=== PATIENT | female | born 1955 ===

== ENCOUNTER 2017-01-03 06:31 | Day surgery (SDC) | payer OTHER ==
[2017-01-03 07:13] VITALS: BMI 26.5
[2017-01-03] MEDS ORDERED: Midazolam 2 MG/2 ML VIAL ONE (09:37)
[2017-01-03] MEDS ORDERED: Propofol 10 mg/ml Inj (20 ML) ONE ×3 (09:37→09:48)
[2017-01-03] MEDS ORDERED: Lactated Ringer's 500 ML IV ONE (09:52)
[2017-01-03] MEDS ORDERED: Lactated Ringer's 1,000 ML IV SCH (10:45)
[2017-01-03 11:06] VITALS: TEMP 98
[2017-01-03 11:12] VITALS: RESP 18
[2017-01-03 11:24] VITALS: O2SAT 98
[2017-01-03 14:02] VITALS: BP 115/68; PULSE 82
== END 2017-01-03 12:45 | disposition home or self-care (01) ==
LOC: C.ENDO 06:31
PROVIDERS: ATTEND Internal Medicine Gastroenterology
DX: K21.9 Gastro-esophageal reflux disease without esophagitis (principal); K20.9 Esophagitis, unspecified; K44.9 Diaphragmatic hernia without obstruction or gangrene; K29.70 Gastritis, unspecified, without bleeding; D12.2 Benign neoplasm of ascending colon; D12.5 Benign neoplasm of sigmoid colon; K62.0 Anal polyp; K64.8 Other hemorrhoids
CPT/HCPCS: 43239; 45380; 88305; 88312; 88342; J2001; J2250; J2704; J7120

== ENCOUNTER 2017-05-29 15:53 | Observation (INO) | payer OTHER ==
[2017-05-29 16:02] VITALS: BMI 28.3
[2017-05-29] MEDS ORDERED: Sodium Chloride 0.9% 1,000 ML IV STA ×2 (16:41→19:02)
[2017-05-29] MEDS ORDERED: Sodium Chloride 0.9% 1,000 ML ONE ×2 (16:55→21:34)
[2017-05-29 17:04] LABS: BASO # 0.1 K/uL (0.0-0.2); BASO % 0.8 % (0.0-2.0); EOS # 0.2 K/uL (0.0-0.7); HEMATOCRIT 40.5 % (34.0-47.0); LYMPH # 2.2 K/uL (1.0-4.3); LYMPH % 28.2 % (20.0-40.0); MEAN CELL VOLUME 90.1 fL (81.0-99.0); MEAN CORPUSCULAR HEMOGLOBIN 30.3 pg (27.0-31.0); MEAN CORPUSCULAR HGB CONC 33.6 g/dL (33.0-37.0); MEAN PLATELET VOLUME 6.8 fL (7.2-11.7); MONO # 0.8 K/uL (0.0-0.8); MONO % 9.8 % (0.0-10.0); NRBC % 0.1 % (0.0-2.0); RED CELL DISTRIBUTION WIDTH 14.6 % (11.5-14.5); WHITE BLOOD COUNT 7.7 K/uL (4.8-10.8)
[2017-05-29 17:12] LABS: CHLORIDE 105 mmol/L (98-107); POTASSIUM 3.7 mmol/L (3.6-5.2); SODIUM 138 mmol/L (132-148)
[2017-05-29 17:14] LABS: BILIRUBIN,TOTAL 0.4 mg/dL (0.2-1.3); GFR AFRICAN-AMERICAN > 60
[2017-05-29 17:15] LABS: ALB/GLOB RATIO 1.3 (1.0-2.1); ALKALINE PHOSPHATASE 74 U/L (38-126); ALT/SGPT 43 U/L (9-52); AST/SGOT 28 U/L (14-36); BLOOD UREA NITROGEN 22 mg/dL (7-17); CALCIUM 9.1 mg/dl (8.6-10.4); CARBON DIOXIDE 23 mmol/L (22-30); GLUCOSE,RANDOM 138 mg/dL (65-105); TOTAL PROTEIN 6.8 g/dL (6.3-8.3)
[2017-05-29 17:18] LABS: RBC URINE 3 /hpf (0-3); URINE BACTERIA RARE (<OCC); URINE BILIRUBIN NEGATIVE (NEGATIVE); URINE BLOOD NEGATIVE (NEGATIVE); URINE CALCIUM OXALATE CRYSTALS FEW /hpf (<OCC); URINE COLOR Yellow (YELLOW); URINE GLUCOSE (UA) NORMAL (Normal); URINE KETONE NEGATIVE (NEGATIVE); URINE LEUKOCYTE ESTERASE NEG Leu/uL (Negative); URINE PROTEIN NEGATIVE (NEGATIVE); URINE UROBILINOGEN NORMAL mg/dL (0.2-1.0); WBC URINE 1 /hpf (0-5)
--- NOTE | 2017-05-29 17:18 | C.PDOC ---
History Of Present Illness 61 y/o female, whose PMHx includes kidney stones, presents to ED for evaluation of left flank pain, and difficulty urinating since this morning. Pt states that she has urinary frequency but only drips when trying to urinate. States that her symptoms feel similar when she previously had kidney stone. Otherwise, denies any fever, chills, dysuria, hematuria, nausea, vomiting, or abdominal pain. Time Seen by Provider: 05/29/17 16:22 Chief Complaint (Nursing): Female Genitourinary History Per: Patient History/Exam Limitations: no limitations Onset/Duration Of Symptoms: Hrs Current Symptoms Are (Timing): Still Present Quality Of Discomfort: "Pain" Associated Symptoms: Back Pain, Urinary Symptoms. denies: Fever, Chills, Nausea , Vomiting, Diarrhea, Loss Of Appetite, Chest Pain, Constipation Alleviating Factors: None Recent travel outside of the [place]: No Additional History Per: Patient Abnormal Vaginal Bleeding: No Past Medical History Reviewed: Historical Data, Nursing Documentation, Vital Signs Vital Signs: Last Vital Signs Temp 98.5 F 05/29/17 16:01 Pulse 108 H 05/29/17 16:01 Resp 20 05/29/17 16:01 BP 127/82 05/29/17 16:01 Pulse Ox 96 05/29/17 17:36 - Medical History PMH: Arthritis, Asthma, COPD, Diabetes, Hypercholesterolemia, Kidney Stones Denies: HTN Surgical History: Endoscopy, Tonsillectomy - [facility] Procedures EXC LES SOFT TISSUE NEC (02/26/15) OTHER THERAPEUTIC APHERESIS (02/26/15) TENDON SHEATH EXPLORAT (02/26/15) URETERAL CATHETERIZATION (06/27/14) Family History: States: Unknown Family Hx - Social History Hx Tobacco Use: Yes Hx Alcohol Use: Yes Hx Substance Use: No - Immunization History Hx Tetanus Toxoid Vaccination: No Hx Influenza Vaccination: No Hx Pneumococcal Vaccination: No Review Of Systems Except As Marked, All Systems Reviewed And Found Negative. Constitutional: Negative for: Fever, Chills Cardiovascular: Negative for: Chest Pain, Palpitations Respiratory: Negative for: Shortness of Breath Gastrointestinal: Negative for: Nausea, Vomiting, Abdominal Pain, Diarrhea Genitourinary: Positive for: Frequency. Negative for: Dysuria, Hematuria, Vaginal Discharge Musculoskeletal: Positive for: Back Pain (left flank) Skin: Negative for: Rash, Bruising Neurological: Negative for: Weakness, Numbness Physical Exam - Physical Exam Appears: Non-toxic, Other (uncomfortable) Skin: Normal Color, Warm, Dry Head: Atraumatic, Normacephalic Eye(s): bilateral: Normal Inspection Oral Mucosa: Moist Neck: Normal ROM, Supple Cardiovascular: Rhythm Regular, No Murmur Respiratory: Normal Breath Sounds, No Rales, No Rhonchi, No Wheezing Gastrointestinal/Abdominal: Soft, No Tenderness Back: CVA Tenderness (left), No Vertebral Tenderness, No Paraspinal Tenderness Extremity: Normal ROM Neurological/Psych: Oriented x3, Normal Speech, Normal Cognition ED Course And Treatment - Laboratory Results Result Diagrams: 05/29/17 16:59 05/29/17 16:59 O2 Sat by Pulse Oximetry: 96 (RA) Pulse Ox Interpretation: Normal - CT Scan/US Abd & pelvis CT Other Rad Studies (CT/US): Read By Radiologist, Radiology Report Reviewed CT/US Interpretation: PROCEDURE: CT Abdomen and Pelvis without Oral or IV contrast. HISTORY: left flank pain. COMPARISON: CT of the abdomen pelvis without oral or IV contrast performed 01/31/17. TECHNIQUE: Contiguous axial images of the abdomen and pelvis. No oral or IV contrast administered. Coronal and Sagittal reformats generated. Radiation dose: Total exam DLP = 495.99 mGy- cm. This CT exam was performed using one or more of the following dose reduction techniques: Automated exposure control, adjustment of the mA and/or kV according to patient size, and/or use of iterative reconstruction technique. FINDINGS: There is limited evaluation of the solid organs without the administration of IV contrast. LOWER THORAX: No visible consolidation, pleural effusion, or pneumothorax. LIVER: Hepatomegaly. GALLBLADDER AND BILE DUCTS: Unremarkable unenhanced appearance. PANCREAS: Unremarkable unenhanced appearance. SPLEEN: Unremarkable unenhanced appearance. ADRENALS: Low- attenuation left adrenal gland nodule measures approximately 2.0 x 1.4 cm, likely adenoma. Unremarkable unenhanced appearance of the right adrenal gland. KIDNEYS AND URETERS: No hydronephrosis or obstructing renal calculus. BLADDER : The urinary bladder appears unremarkable. REPRODUCTIVE: Uterus is absent, presumably due to hysterectomy. APPENDIX: The appendix appears within normal limits of caliber. No secondary signs of acute appendicitis. BOWEL: The stomach is nondistended. Lack of oral contrast limits evaluation for bowel pathology. The bowel loops appear within normal limits of caliber without evidence of intestinal obstruction. Diverticulosis without CT evidence of acute diverticulitis. Mild to moderate constipation. PERITONEUM: No significant free fluid. No definite free air. LYMPH NODES: No bulky lymphadenopathy identified. VASCULATURE: Scattered atherosclerotic calcifications. No aortic aneurysm. BONES: Mild degenerative changes. OTHER FINDINGS: None. IMPRESSION: Hepatomegaly. Low-attenuation left adrenal gland nodule measures approximately 2.0 x 1.4 cm, likely adenoma. Diverticulosis without CT evidence of acute diverticulitis. Mild to moderate constipation. Progress Note: Abd & pelvis CT, blood work, urinalysis ordered and reviewed. Pt was given Toradol, and IV fluids. On reassessment, pt reports she still in pain. case was d/wpt's PMD who accepted patient to MD for observation. Disposition - Disposition Disposition: HOSPITALIZED Disposition Time: 19:07 Condition: FAIR Forms: [facility] (Khmer) - Clinical Impression Clinical Impression: Left flank pain - PA / CERTIFICATION ENGINEER / Resident Statement MD/DO has reviewed & agrees with the documentation as recorded. - Scribe Statement The provider has reviewed the documentation as recorded by the Ziibe Prashant Castaneda All medical record entries made by the Deric were at my direction and personally dictated by me. I have reviewed the chart and agree that the record accurately reflects my personal performance of the history, physical exam, medical decision making, and the department course for this patient. I have also personally directed, reviewed, and agree with the discharge instructions and disposition. Decision To Admit - Pt Status Changed To: Hospital Disposition Of: Observation - . Bed Request Type: Regular Admitting Physician: Angela Ahmadi Patient Diagnosis: Left flank pain
--- NOTE | 2017-05-29 17:33 | CT ---
PROCEDURE: CT Abdomen and Pelvis without Oral or IV contrast. HISTORY: left flank pain COMPARISON: CT of the abdomen pelvis without oral or IV contrast performed 01/31/17 TECHNIQUE: Contiguous axial images of the abdomen and pelvis. No oral or IV contrast administered. Coronal and Sagittal reformats generated. Radiation dose: Total exam DLP = 495.99 mGy-cm. This CT exam was performed using one or more of the following dose reduction techniques: Automated exposure control, adjustment of the mA and/or kV according to patient size, and/or use of iterative reconstruction technique. FINDINGS: There is limited evaluation of the solid organs without the administration of IV contrast. LOWER THORAX: No visible consolidation, pleural effusion, or pneumothorax. LIVER: Hepatomegaly. GALLBLADDER AND BILE DUCTS: Unremarkable unenhanced appearance. PANCREAS: Unremarkable unenhanced appearance. SPLEEN: Unremarkable unenhanced appearance. ADRENALS: Low-attenuation left adrenal gland nodule measures approximately 2.0 x 1.4 cm, likely adenoma. Unremarkable unenhanced appearance of the right adrenal gland. KIDNEYS AND URETERS: No hydronephrosis or obstructing renal calculus. BLADDER: The urinary bladder appears unremarkable. REPRODUCTIVE: Uterus is absent, presumably due to hysterectomy. APPENDIX: The appendix appears within normal limits of caliber. No secondary signs of acute appendicitis. BOWEL: The stomach is nondistended. Lack of oral contrast limits evaluation for bowel pathology. The bowel loops appear within normal limits of caliber without evidence of intestinal obstruction. Diverticulosis without CT evidence of acute diverticulitis. Mild to moderate constipation. PERITONEUM: No significant free fluid. No definite free air. LYMPH NODES: No bulky lymphadenopathy identified. VASCULATURE: Scattered atherosclerotic calcifications. No aortic aneurysm. BONES: Mild degenerative changes. OTHER FINDINGS: None. IMPRESSION: Hepatomegaly. Low-attenuation left adrenal gland nodule measures approximately 2.0 x 1.4 cm, likely adenoma. Diverticulosis without CT evidence of acute diverticulitis. Mild to moderate constipation.
[2017-05-29] MEDS ORDERED: Morphine 4 MG/ML VIAL IV STA (19:01)
--- NOTE | 2017-05-29 20:56 | CP.PCM.HP ---
History of Present Illness - History of Present Illness History of Present Illness: Chief complaint: Abdominal pain History present illness: 60-year-old female with a history of COPD, hypercholesterolemia, osteopenia, diabetes, hypertension, renal colic in the past came to the emergency room with the sudden onset of abdominal pain, started this morning. Patient started noticing pain over the left side of the pelvis, and also hip and also in the left flank region, started having this morning, slowly got worse. Patient was associated with the some increasing urination, increased frequency, and some discomfort. She did not have any fever chills. No blood in the urine noted. The pain was severe, received pain medication in the emergency room. Patient also received IV fluid, without any improvement patient does not want to go home at this time. She was also having increasing symptoms of nausea with pain. Past medical history: Hypertension, hypercholesterolemia, diabetes, osteopenia, COPD. Surgical history: Left shoulder, left knee surgery. Lumpectomy tonsillectomy hysterectomy and cyst removal. Colonoscopy was done recently, and the polyps removal Allergies: Percocet in Personal history: Patient is a smoker, almost a 68 cigarettes per day. She used to smoke heavily in the past. Denies any alcohol. Family history significant for dementia, Parkinson's Review of system: Currently having no headache, cough, wheezing, chest tightness noted, abdominal pain noted, some improvement with the pain medicine, urinary discomfort, no leg swelling Vital signs reviewed No neck vein distention noted Bilateral expiratory wheezing noted CVS regular heart sound, no murmur noted Abdomen soft, nontender. Extremities no pedal edema [employer] alert awake oriented 3, no functional neurological deficit Labs reviewed CT scan of the abdomen showing no evidence of any calculi. No hydronephrosis. Nonspecific chest x-ray Assessment and recommendation: 60-year-old female with history of hypertension and hypercholesteremia osteopenia, osteoporosis, osteoarthritis, COPD. Chronic smoking. Kidney stone disease Now admitted with left flank pain, associated nephrolithiasis. Patient is also having increasing wheezing, acute exacerbation of COPD likely. We'll start the patient on corticosteroids, broncho-dilators. IV fluid. Urology evaluation. Cardiology evaluation for possible cardiac monitoring. We'll follow the patient Present on Admission - Present on Admission Any Indicators Present on Admission: No History of DVT/PE: No History of Uncontrolled Diabetes: No Urinary Catheter: No Decubitus Ulcer Present: No Past Patient History - Past Medical History & Family History Past Medical History?: Yes - Past Social History Smoking Status: Heavy Smoker > 10 Cigarettes Daily - CARDIAC Hx Hypercholesterolemia: Yes Hx Hypertension: No - PULMONARY Hx Asthma: Yes Hx Chronic Obstructive Pulmonary Disease (COPD): Yes - NEUROLOGICAL Hx Neurological Disorder: No - HEENT Hx HEENT Problems: No - RENAL Hx Kidney Stones: Yes - HEMATOLOGICAL/ONCOLOGICAL Hx Blood Disorders: No - INTEGUMENTARY Hx Dermatological Problems: No - MUSCULOSKELETAL/RHEUMATOLOGICAL Hx Arthritis: Yes - GASTROINTESTINAL Hx Gastrointestinal Disorders: Yes Hx Gastroesophageal Reflux: Yes Other/Comment: ABDOMINAL PAIN - GENITOURINARY/GYNECOLOGICAL Hx Genitourinary Disorders: Yes Other/Comment: KIDNEY STONES - PSYCHIATRIC Hx Substance Use: No - SURGICAL HISTORY Hx Tonsillectomy: Yes - ANESTHESIA Hx Anesthesia: Yes Hx Anesthesia Reactions: Yes (NAUSEA AND VOMITING) Hx Malignant Hyperthermia: No Meds Allergies/Adverse Reactions: Allergies Allergy/AdvReac Type Severity Reaction Status Date / Time acetaminophen [From Percocet] Allergy Verified 05/29/17 16:00 oxycodone HCl [From Percocet] Allergy Verified 05/29/17 16:00 flu vaccine Allergy Uncoded 05/29/17 16:00 pnuemonia vaccine Allergy Uncoded 05/29/17 16:00 Results - Vital Signs Recent Vital Signs: Last Vital Signs Temp 97.5 F L 05/29/17 20:07 Pulse 90 05/29/17 20:07 Resp 18 05/29/17 20:07 BP 132/78 05/29/17 20:07 Pulse Ox 95 05/29/17 20:07 - Labs Result Diagrams: 05/29/17 16:59 05/29/17 16:59
[2017-05-29] MEDS: Sodium Chloride 0.9% 1,000 ML IV SCH (21:30)
[2017-05-29] MEDS ORDERED: MethylPREDNISolone 40 mg Vial ONE (21:34)
[2017-05-29] MEDS: MethylPREDNISolone 40 mg Vial IVP SCH (21:42)
[2017-05-30 02:15] VITALS: RESP 20
[2017-05-30] MEDS: Sodium Chloride 0.9% 1,000 ML IV SCH ×2 (06:54→17:54)
[2017-05-30] MEDS: Albuterol-Ipratrop 3 mg / 0.5 (3 ml) UD INH SCH ×3 (07:24→19:59)
[2017-05-30] MEDS ORDERED: Enoxaparin 40 mg Syringe SC SCH (10:00)
[2017-05-30] MEDS: MethylPREDNISolone 40 mg Vial IVP SCH (11:00)
--- NOTE | 2017-05-30 12:38 | CP.PCM.CON ---
History of Present Illness - History of Present Illness History of Present Illness: PLEASE SEE DICTATED REPORT JOB# [id number] THANK YOU YS Past Patient History - Past Medical History & Family History Past Medical History?: Yes - Past Social History Smoking Status: Heavy Smoker > 10 Cigarettes Daily - CARDIAC Hx Cardiac Disorders: Yes Hx Hypercholesterolemia: Yes Hx Hypertension: No - PULMONARY Hx Respiratory Disorders: Yes Hx Asthma: Yes Hx Chronic Obstructive Pulmonary Disease (COPD): Yes - NEUROLOGICAL Hx Neurological Disorder: No - HEENT Hx HEENT Problems: No - RENAL Hx Chronic Kidney Disease: Yes Hx Kidney Stones: Yes - ENDOCRINE/METABOLIC Hx Endocrine Disorders: Yes Hx Diabetes Mellitus Type 2: Yes - HEMATOLOGICAL/ONCOLOGICAL Hx Blood Disorders: No - INTEGUMENTARY Hx Dermatological Problems: No - MUSCULOSKELETAL/RHEUMATOLOGICAL Hx Musculoskeletal Disorders: Yes Hx Arthritis: Yes Hx Falls: Yes - GASTROINTESTINAL Hx Gastrointestinal Disorders: Yes Hx Gastroesophageal Reflux: Yes Other/Comment: ABDOMINAL PAIN - GENITOURINARY/GYNECOLOGICAL Hx Genitourinary Disorders: Yes Other/Comment: KIDNEY STONES - PSYCHIATRIC Hx Psychophysiologic Disorder: No Hx Substance Use: No - SURGICAL HISTORY Hx Surgeries: Yes Hx Hysterectomy: Yes Hx Tonsillectomy: Yes Other/Comment: bilateral cysts removed 15 yrs ago - ANESTHESIA Hx Anesthesia: Yes Hx Anesthesia Reactions: Yes (NAUSEA AND VOMITING) Hx Malignant Hyperthermia: No Has any member of the family had a problem w/ anesthesia?: No Meds Home Medications: Home Medication List Medication Instructions Recorded Confirmed Type Albuterol/Ipratropium [Duoneb 3 3 ml INH RQ6 #120 05/31/17 Rx mg/0.5 mg (3 ml) UD] Tiotropium [place] Inhaler 1 cap INH ONCE #30 inhaler 05/31/17 Rx [Spiriva Inhalation Handihaler Device] Allergies/Adverse Reactions: Allergies Allergy/AdvReac Type Severity Reaction Status Date / Time acetaminophen [From Percocet] Allergy Verified 05/29/17 16:00 oxycodone HCl [From Percocet] Allergy Verified 05/29/17 16:00 flu vaccine Allergy Uncoded 05/29/17 16:00 pnuemonia vaccine Allergy Uncoded 05/29/17 16:00 - Medications Medications: Current Medications Albuterol/Ipratropium (Duoneb 3 Mg/0.5 Mg (3 Ml) Ud) 3 ml INH RQ6 [facility] Last Admin: 08/16/17 07:24 Dose: 3 ml Enoxaparin Sodium (Lovenox) 40 mg SC DAILY [facility] Last Admin: 05/30/17 11:00 Dose: 40 mg Famotidine (Pepcid) 20 mg IVP DAILY [facility] Last Admin: 05/30/17 11:00 Dose: 20 mg Sodium Chloride (Sodium Chloride 0.9%) 1,000 mls @ 100 mls/hr IV .Q10H [facility] Last Admin: 05/30/17 06:54 Dose: Not Given Ibuprofen (Motrin Tab) 400 mg PO Q8 PRN PRN Reason: Pain, moderate (4-7) Methylprednisolone (Solu-Medrol) 40 mg IVP DAILY [facility] Last Admin: 05/30/17 11:00 Dose: 40 mg Montelukast Sodium (Singulair) 10 mg PO DAILY [facility] Last Admin: 05/30/17 11:00 Dose: 10 mg Rosuvastatin Calcium (Crestor) 5 mg PO HS [facility] Last Admin: 05/29/17 23:04 Dose: 5 mg Tiotropium [place] (Spiriva) 18 mcg INH RQ24 [facility] Results - Vital Signs Recent Vital Signs: Last Vital Signs Temp 98.0 F 05/30/17 09:19 Pulse 86 05/30/17 09:19 Resp 20 05/30/17 09:19 BP 132/82 05/30/17 09:19 Pulse Ox 98 05/30/17 09:19 - Labs Result Diagrams: 05/29/17 16:59 05/29/17 16:59 Labs: Laboratory Results - last 24 hr 05/29/17 05/30/17 21:56 06:01 POC Glucose (mg/dL) 174 H 199 H Assessment & Plan - Assessment and Plan (Free Text) Assessment: IMP: ABD PAIN BACK PAIN HX OF UROLITHIASIS - Date & Time Date: 05/30/17 Time: 11:45
[2017-05-30] MEDS: Tiotropium 18 mcg Cap For Inhalation INH SCH (13:15)
--- NOTE | 2017-05-30 17:23 | CP.PCM.CON ---
History of Present Illness - History of Present Illness History of Present Illness: CC: Dyspnea, cardiac evaluation 61 y/o female, whose PMHx includes kidney stones, presents to ED for evaluation of left flank pain, and difficulty urinating since this morning. Pt states that she has urinary frequency but only drips when trying to urinate. States that her symptoms feel similar when she previously had kidney stone. Otherwise, denies any fever, chills, dysuria, hematuria, nausea, vomiting, or abdominal pain. Past Medical History Reviewed: Historical Data, Nursing Documentation, Vital Signs - Medical History PMH: Arthritis, Asthma, COPD, Diabetes, Hypercholesterolemia, Kidney Stones Denies: HTN Surgical History: Endoscopy, Tonsillectomy - [facility] Procedures EXC LES SOFT TISSUE NEC (02/26/15) OTHER THERAPEUTIC APHERESIS (02/26/15) TENDON SHEATH EXPLORAT (02/26/15) URETERAL CATHETERIZATION (06/27/14) Family History: States: Unknown Family Hx - Social History Hx Tobacco Use: Yes Hx Alcohol Use: Yes Hx Substance Use: No - Immunization History Hx Tetanus Toxoid Vaccination: No Hx Influenza Vaccination: No Hx Pneumococcal Vaccination: No Review Of Systems Except As Marked, All Systems Reviewed And Found Negative. Constitutional: Negative for: Fever, Chills Cardiovascular: Negative for: Chest Pain, Palpitations Respiratory: Negative for: Shortness of Breath Gastrointestinal: Negative for: Nausea, Vomiting, Abdominal Pain, Diarrhea Genitourinary: Positive for: Frequency. Negative for: Dysuria, Hematuria, Vaginal Discharge Musculoskeletal: Positive for: Back Pain (left flank) Skin: Negative for: Rash, Bruising Neurological: Negative for: Weakness, Numbness Physical Exam - Physical Exam Appears: Non-toxic, Other (uncomfortable) Skin: Normal Color, Warm, Dry Head: Atraumatic, Normacephalic Eye(s): bilateral: Normal Inspection Oral Mucosa: Moist Neck: Normal ROM, Supple Cardiovascular: Rhythm Regular, No Murmur Respiratory: Normal Breath Sounds, No Rales, No Rhonchi, No Wheezing Gastrointestinal/Abdominal: Soft, No Tenderness Back: CVA Tenderness (left), No Vertebral Tenderness, No Paraspinal Tenderness Extremity: Normal ROM Neurological/Psych: Oriented x3, Normal Speech, Normal Cognition Past Patient History - Past Medical History & Family History Past Medical History?: Yes - Past Social History Smoking Status: Heavy Smoker > 10 Cigarettes Daily - CARDIAC Hx Cardiac Disorders: Yes Hx Hypercholesterolemia: Yes Hx Hypertension: No - PULMONARY Hx Respiratory Disorders: Yes Hx Asthma: Yes Hx Chronic Obstructive Pulmonary Disease (COPD): Yes - NEUROLOGICAL Hx Neurological Disorder: No - HEENT Hx HEENT Problems: No - RENAL Hx Chronic Kidney Disease: Yes Hx Kidney Stones: Yes - ENDOCRINE/METABOLIC Hx Endocrine Disorders: Yes Hx Diabetes Mellitus Type 2: Yes - HEMATOLOGICAL/ONCOLOGICAL Hx Blood Disorders: No - INTEGUMENTARY Hx Dermatological Problems: No - MUSCULOSKELETAL/RHEUMATOLOGICAL Hx Musculoskeletal Disorders: Yes Hx Arthritis: Yes Hx Falls: Yes - GASTROINTESTINAL Hx Gastrointestinal Disorders: Yes Hx Gastroesophageal Reflux: Yes Other/Comment: ABDOMINAL PAIN - GENITOURINARY/GYNECOLOGICAL Hx Genitourinary Disorders: Yes Other/Comment: KIDNEY STONES - PSYCHIATRIC Hx Psychophysiologic Disorder: No Hx Substance Use: No - SURGICAL HISTORY Hx Surgeries: Yes Hx Hysterectomy: Yes Hx Tonsillectomy: Yes Other/Comment: bilateral cysts removed 15 yrs ago - ANESTHESIA Hx Anesthesia: Yes Hx Anesthesia Reactions: Yes (NAUSEA AND VOMITING) Hx Malignant Hyperthermia: No Has any member of the family had a problem w/ anesthesia?: No Meds Allergies/Adverse Reactions: Allergies Allergy/AdvReac Type Severity Reaction Status Date / Time acetaminophen [From Percocet] Allergy Verified 05/29/17 16:00 oxycodone HCl [From Percocet] Allergy Verified 05/29/17 16:00 flu vaccine Allergy Uncoded 05/29/17 16:00 pnuemonia vaccine Allergy Uncoded 05/29/17 16:00 - Medications Medications: Current Medications Albuterol/Ipratropium (Duoneb 3 Mg/0.5 Mg (3 Ml) Ud) 3 ml INH RQ6 [facility] Last Admin: 05/30/17 13:15 Dose: 3 ml Enoxaparin Sodium (Lovenox) 40 mg SC DAILY [facility] Last Admin: 05/30/17 11:00 Dose: 40 mg Famotidine (Pepcid) 20 mg IVP DAILY [facility] Last Admin: 05/30/17 11:00 Dose: 20 mg Sodium Chloride (Sodium Chloride 0.9%) 1,000 mls @ 100 mls/hr IV .Q10H [facility] Last Admin: 05/30/17 06:54 Dose: Not Given Ibuprofen (Motrin Tab) 400 mg PO Q8 PRN PRN Reason: Pain, moderate (4-7) Last Admin: 05/30/17 12:50 Dose: 400 mg Methylprednisolone (Solu-Medrol) 40 mg IVP DAILY [facility] Last Admin: 05/30/17 11:00 Dose: 40 mg Montelukast Sodium (Singulair) 10 mg PO DAILY [facility] Last Admin: 05/30/17 11:00 Dose: 10 mg Rosuvastatin Calcium (Crestor) 5 mg PO HS [facility] Last Admin: 05/29/17 23:04 Dose: 5 mg Tiotropium [place] (Spiriva) 18 mcg INH RQ24 [facility] Last Admin: 05/30/17 13:15 Dose: 18 mcg Results - Vital Signs Recent Vital Signs: Last Vital Signs Temp 97.9 F 05/30/17 16:17 Pulse 86 05/30/17 16:17 Resp 20 05/30/17 16:17 BP 127/75 05/30/17 16:17 Pulse Ox 95 05/30/17 16:17 - Labs Result Diagrams: 05/29/17 16:59 05/29/17 16:59 Labs: Laboratory Results - last 24 hr 05/29/17 05/30/17 21:56 06:01 POC Glucose (mg/dL) 174 H 199 H Assessment & Plan - Assessment and Plan (Free Text) Assessment: 61 F with Hx of HTN, Hyperlipidemia, tobacco use admitted predominantly for back pain Hx of kidney stones Patient electively scgeduled for stress test Sunday No additional cardiac testing needed at this time
[2017-05-31] MEDS: Albuterol-Ipratrop 3 mg / 0.5 (3 ml) UD INH SCH ×2 (01:39→07:26)
[2017-05-31] MEDS: Sodium Chloride 0.9% 1,000 ML IV SCH (03:16)
--- NOTE | 2017-05-31 06:52 | CP.PCM.PN ---
Subjective - Date & Time of Evaluation Date of Evaluation: 05/30/17 Time of Evaluation: 20:50 - Subjective Subjective: is a less pain over the left flank region, urinary symptoms are negative. No chest pain. She is able to eat without any problem, no nausea vomiting Vital signs reviewed No neck vein distention noted Chest good air entry bilaterally, no wheezing or rales noted CVS regular heart sound, no murmur noted Abdomen soft, nontender. 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 Currently having no active symptoms. At this time patient is currently stable. Continue the IV fluid. Possible discharge planning the morning Assessment/recommendation: 60-year-old female admitted with the history of COPD, mild exacerbation noted. Also elevated blood sugar likely secondary intravenous corticosteroids. We'll closely monitor. Discharge in the morning possibly Objective - Vital Signs/Intake and Output Vital Signs (last 24 hours): Temp Pulse Resp BP Pulse Ox 98.0 F 79 20 121/78 96 05/30/17 23:00 05/30/17 23:00 05/30/17 23:00 05/30/17 23:00 05/30/17 23:00 Intake and Output: 05/30/17 05/31/17 18:59 06:59 Intake Total 1300 800 Balance 1300 800 - Medications Medications: Current Medications Albuterol/Ipratropium (Duoneb 3 Mg/0.5 Mg (3 Ml) Ud) 3 ml INH RQ6 [facility] Last Admin: 05/31/17 01:39 Dose: Not Given Enoxaparin Sodium (Lovenox) 40 mg SC DAILY [facility] Last Admin: 05/30/17 11:00 Dose: 40 mg Famotidine (Pepcid) 20 mg IVP DAILY [facility] Last Admin: 05/30/17 11:00 Dose: 20 mg Sodium Chloride (Sodium Chloride 0.9%) 1,000 mls @ 100 mls/hr IV .Q10H [facility] Last Admin: 05/31/17 03:16 Dose: 100 mls/hr Ibuprofen (Motrin Tab) 400 mg PO Q8 PRN PRN Reason: Pain, moderate (4-7) Last Admin: 05/30/17 12:50 Dose: 400 mg Methylprednisolone (Solu-Medrol) 40 mg IVP DAILY [facility] Last Admin: 05/30/17 11:00 Dose: 40 mg Montelukast Sodium (Singulair) 10 mg PO DAILY [facility] Last Admin: 05/30/17 11:00 Dose: 10 mg Rosuvastatin Calcium (Crestor) 5 mg PO HS [facility] Last Admin: 05/30/17 21:24 Dose: 5 mg Tiotropium [place] (Spiriva) 18 mcg INH RQ24 [facility] Last Admin: 05/30/17 13:15 Dose: 18 mcg
[2017-05-31] MEDS: Tiotropium 18 mcg Cap For Inhalation INH SCH (07:26)
[2017-05-31 08:08] VITALS: BP 122/76; PULSE 73; TEMP 98.2; O2SAT 95
--- NOTE | 2017-05-31 09:03 | CP.PCM.DIS ---
Provider - Provider Date of Admission: 05/29/17 19:00 Attending physician: Angela Ahmadi MD Time Spent in preparation of Discharge (in minutes): 45 Hospital Course - Lab Results Lab Results: Most Recent Lab Values WBC 7.7 K/uL (4.8-10.8) 05/29/17 16:59 RBC 4.50 Mil/uL (3.80-5.20) 05/29/17 16:59 Hgb 13.6 g/dL (11.0-16.0) 05/29/17 16:59 Hct 40.5 % (34.0-47.0) 05/29/17 16:59 MCV 90.1 fL (81.0-99.0) 05/29/17 16:59 MCH 30.3 pg (27.0-31.0) 05/29/17 16:59 MCHC 33.6 g/dL (33.0-37.0) 05/29/17 16:59 RDW 14.6 % (11.5-14.5) H 05/29/17 16:59 Plt Count 357 K/uL (130-400) 05/29/17 16:59 MPV 6.8 fL (7.2-11.7) L 05/29/17 16:59 Neut % (Auto) 59.2 % (50.0-75.0) 05/29/17 16:59 Lymph % (Auto) 28.2 % (20.0-40.0) 05/29/17 16:59 Atkinson % (Auto) 9.8 % (0.0-10.0) 05/29/17 16:59 Eos % (Auto) 2.0 % (0.0-4.0) 05/29/17 16:59 Baso % (Auto) 0.8 % (0.0-2.0) 05/29/17 16:59 Neut # 4.5 K/uL (1.8-7.0) 05/29/17 16:59 Lymph # 2.2 K/uL (1.0-4.3) 05/29/17 16:59 Atkinson # 0.8 K/uL (0.0-0.8) 05/29/17 16:59 Eos # 0.2 K/uL (0.0-0.7) 05/29/17 16:59 Baso # 0.1 K/uL (0.0-0.2) 05/29/17 16:59 Sodium 138 mmol/L (132-148) 05/29/17 16:59 Potassium 3.7 mmol/L (3.6-5.2) 05/29/17 16:59 Chloride 105 mmol/L (98-107) 05/29/17 16:59 Carbon Dioxide 23 mmol/L (22-30) 05/29/17 16:59 Anion Gap 13 (10-20) 05/29/17 16:59 BUN 22 mg/dL (7-17) H 05/29/17 16:59 Creatinine 0.6 MG/DL (0.7-1.2) L 05/29/17 16:59 Est GFR ( Amer) > 60 05/29/17 16:59 Est GFR (Non-Af Amer) > 60 05/29/17 16:59 POC Glucose (mg/dL) 120 mg/dL (65-110) H 05/31/17 06:08 Random Glucose 138 mg/dL (65-105) H 05/29/17 16:59 Calcium 9.1 mg/dl (8.6-10.4) 05/29/17 16:59 Total Bilirubin 0.4 mg/dL (0.2-1.3) 05/29/17 16:59 AST 28 U/L (14-36) 05/29/17 16:59 ALT 43 U/L (9-52) 05/29/17 16:59 Alkaline Phosphatase 74 U/L (38-126) 05/29/17 16:59 Total Protein 6.8 g/dL (6.3-8.3) 05/29/17 16:59 Albumin 3.9 g/dL (3.5-5.0) 05/29/17 16:59 Globulin 2.9 gm/dL (2.2-3.9) 05/29/17 16:59 Albumin/Globulin Ratio 1.3 (1.0-2.1) 05/29/17 16:59 Lipase 95 U/L (23-300) 05/29/17 16:59 Urine Color Yellow (YELLOW) 05/29/17 16:59 Urine Clarity Hazy (Clear) 05/29/17 16:59 Urine pH 6.0 (5.0-8.0) 05/29/17 16:59 Ur Specific [place] 1.020 (1.003-1.030) 05/29/17 16:59 Urine Protein Negative mg/dL (NEGATIVE) 05/29/17 16:59 Urine Glucose (UA) Normal mg/dL (Normal) 05/29/17 16:59 Urine Ketones Negative mg/dL (NEGATIVE) 05/29/17 16:59 Urine Blood Negative (NEGATIVE) 05/29/17 16:59 Urine Nitrate Negative (NEGATIVE) 05/29/17 16:59 Urine Bilirubin Negative (NEGATIVE) 05/29/17 16:59 Urine Urobilinogen Normal mg/dL (0.2-1.0) 05/29/17 16:59 Ur Leukocyte Esterase Neg Mercedes/uL (Negative) 05/29/17 16:59 Urine WBC (Auto) 1 /hpf (0-5) 05/29/17 16:59 Urine RBC (Auto) 3 /hpf (0-3) 05/29/17 16:59 Ur Squamous Epith Cells 11 /hpf (0-5) H 05/29/17 16:59 Calcium Oxalate Crystal Few /hpf (<OCC) H 05/29/17 16:59 Urine Bacteria Rare (<OCC) 05/29/17 16:59 - Hospital Course Hospital Course: Chief complaint: Abdominal pain History present illness: 60-year-old female with a history of COPD, hypercholesterolemia, osteopenia, diabetes, hypertension, renal colic in the past came to the emergency room with the sudden onset of abdominal pain, started this morning. Patient started noticing pain over the left side of the pelvis, and also hip and also in the left flank region, started having this morning, slowly got worse. Patient was associated with the some increasing urination, increased frequency, and some discomfort. She did not have any fever chills. No blood in the urine noted. The pain was severe, received pain medication in the emergency room. Patient also received IV fluid, without any improvement patient does not want to go home at this time. She was also having increasing symptoms of nausea with pain. Past medical history: Hypertension, hypercholesterolemia, diabetes, osteopenia, COPD. Surgical history: Left shoulder, left knee surgery. Lumpectomy tonsillectomy hysterectomy and cyst removal. Colonoscopy was done recently, and the polyps removal Allergies: Percocet in Personal history: Patient is a smoker, almost a 68 cigarettes per day. She used to smoke heavily in the past. Denies any alcohol. Family history significant for dementia, Parkinson's Review of system: Currently having no headache, cough, wheezing, chest tightness noted, abdominal pain noted, some improvement with the pain medicine, urinary discomfort, no leg swelling Vital signs reviewed No neck vein distention noted Bilateral expiratory wheezing noted CVS regular heart sound, no murmur noted Abdomen soft, nontender. 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 No hydronephrosis. Nonspecific chest x-ray Assessment and recommendation: 60-year-old female with history of hypertension and hypercholesteremia osteopenia, osteoporosis, osteoarthritis, COPD. Chronic smoking. Kidney stone disease Now admitted with left flank pain, associated nephrolithiasis. Patient is also having increasing wheezing, acute exacerbation of COPD likely. We'll start the patient on corticosteroids, broncho-dilators. IV fluid. Urology evaluation. Cardiology evaluation for possible cardiac monitoring. We'll follow the patient Patient underwent a CT scan of the abdomen. No evidence of any acute pathology noted. 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 Nonspecific abdominal pain. Clinical stable. She will be discharged home. She'll follow up as an outpatient. Final diagnosis COPD exacerbation. Renocolic. Nonspecific. Diabetes, hypertension. I advised her to quit smoking. Will follow the patient Discharge Plan - Discharge Medications Prescriptions: Albuterol/Ipratropium [Duoneb 3 mg/0.5 mg (3 ml) UD] 3 ml INH RQ6 #120 Tiotropium [place] Inhaler [Spiriva Inhalation Handihaler Device] 1 cap INH ONCE #30 inhaler - Follow Up Plan Condition: FAIR Disposition: HOME/ ROUTINE Instructions: Kidney Stones (DC), COPD (Chronic Obstructive Pulmonary Disease) (DC) Additional Instructions: Discharge home. Follow up in 10days. Scheduled for cardiac testing at in am Referrals: Jluis Magaña MD [Staff Provider] - Angela Ahmadi MD [Staff Provider] - Miriam Mcmanus MD [Staff Provider] -
--- NOTE | 2017-06-05 12:03 | CON ---
REASON FOR CONSULTATION: Abdominal pain. History of urolithiasis. HISTORY OF PRESENT ILLNESS: The patient is a 61-year-old female who presented to the emergency room with abdominal pain and flank pain. The patient also reports urinary frequency and straining to void. No hematuria. The patient reports no fever. No nausea or vomiting. The patient has history of previous urolithiasis. The patient previously had cystoscopy and lithotripsy. The patient has history of diabetes. The patient has history of COPD. The patient has history of asthma. The patient has history of urolithiasis approximately 2 to 3 years ago. The patient currently is having left pain than on admission. The patient is currently admitted for evaluation and therapy. The patient has history of hypertension as well. No recent chest pain. The patient has fair appetite. There was previous nausea, which is improved at present. SOCIAL HISTORY: The patient does not drink. The patient smoke cigarettes. The patient is an employee of [employer]. PHYSICAL EXAMINATION: GENERAL: The patient is a well-developed, well-nourished female, appearing stated age. The patient is awake and alert. The patient is comfortable, in no acute distress. ABDOMEN: Soft, nontender, nondistended. No mass or organomegaly. BACK: No CVA tenderness. LABORATORY DATA: Reviewed as well. White blood count of 7700. Hematocrit 40. BUN 22, creatinine 0.6. I reviewed the CAT scan. There was no evidence of hydronephrosis. There is no evidence of urolithiasis. There is possible adrenal nodule. There is hepatomegaly as well. IMPRESSION: A 61-year-old female with previous abdominal pain and flank pain. History of urolithiasis. The patient is clinically improved. It is possible that the patient had passed the stone, although the urinalysis revealed only 3 red blood cells and 1 white blood cell per high power field. Calcium oxalate crystalluria was noted on the urinalysis on admission. The patient is now improved. There is no evidence of abdominal colic today. RECOMMENDATION AND PLAN: Hydration. Strain urine, monitor clinical course. I do not feel the patient needs cystoscopy or stent insertion at present. Further therapy to follow according to the patient's clinical course. Thank you for recommending the patient for urology consultation. Miriam Mcmanus MD [facility] # [id number]
== END 2017-05-31 09:51 | disposition home or self-care (01) ==
LOC: C.ER 15:53 → C.9E 19:00 → C.6T 22:56
PROVIDERS: ADMIT Internal Medicine; ATTEND Internal Medicine
DX: R10.9 Unspecified abdominal pain (principal); E78.5 Hyperlipidemia, unspecified; E78.00 Pure hypercholesterolemia, unspecified; I12.9 Hypertensive chronic kidney disease with stage 1 through stage 4 chronic kidney disease, or unspecified chronic kidney disease; F17.200 Nicotine dependence, unspecified, uncomplicated; N18.9 Chronic kidney disease, unspecified; K21.9 Gastro-esophageal reflux disease without esophagitis
CPT/HCPCS: 74176; 80053; 81001; 82948; 83690; 85025; 87086; 94640; 96361; 96372; 96374; 96375; 96376; 99284; G0378; J1650; J1885; J2920; J7040

== ENCOUNTER 2017-08-07 19:24 | Emergency (ER) | payer OTHER ==
[2017-08-07 19:24] VITALS: BMI 28.3
[2017-08-07] MEDS ORDERED: Acetaminophen-Codeine 300/30 mg Tab PO STA (20:01)
[2017-08-07] MEDS ORDERED: Acetaminophen-Codeine 300/30 mg Tab PO ONE (20:07)
[2017-08-07 22:15] VITALS: BP 116/75; PULSE 84; RESP 18; TEMP 97.8
[2017-08-07 22:16] VITALS: O2SAT 95
--- NOTE | 2017-08-07 22:16 | C.PDOC ---
History Of Present Illness 61 year old female who presents to the ER after patient slipped and fell in a split, injuring her right hip and right hand. Denies weakness, numbness, LOC, or head injury. Time Seen by Provider: 08/07/17 19:57 Chief Complaint (Nursing): Hip Pain History Per: Patient History/Exam Limitations: no limitations Onset/Duration Of Symptoms: Hrs Current Symptoms Are (Timing): Still Present Recent travel outside of the [place]: No - Hip Description Of Injury: Other (Slipped) Past Medical History Reviewed: Historical Data, Nursing Documentation, Vital Signs Vital Signs: Last Vital Signs Temp 97.8 F 08/07/17 22:15 Pulse 84 08/07/17 22:15 Resp 18 08/07/17 22:15 BP 116/75 08/07/17 22:15 Pulse Ox 95 08/07/17 22:20 - Medical History PMH: Arthritis, Asthma, COPD, Diabetes, Hypercholesterolemia, Kidney Stones, Chronic Kidney Disease Surgical History: Endoscopy, Tonsillectomy - [facility] Procedures EXC LES SOFT TISSUE NEC (02/26/15) OTHER THERAPEUTIC APHERESIS (02/26/15) TENDON SHEATH EXPLORAT (02/26/15) URETERAL CATHETERIZATION (06/27/14) Family History: States: Unknown Family Hx - Social History Hx Tobacco Use: Yes Hx Alcohol Use: Yes (occasional) Hx Substance Use: No - Immunization History Hx Tetanus Toxoid Vaccination: No Hx Influenza Vaccination: No Hx Pneumococcal Vaccination: No Review Of Systems Musculoskeletal: Positive for: Hand Pain (Right), Other (Right Hip Pain) Neurological: Negative for: Weakness, Numbness, Other (LOC) Physical Exam - Physical Exam Appears: Non-toxic, No Acute Distress Skin: Warm, Dry Head: Atraumatic, Normacephalic Eye(s): bilateral: Normal Inspection, EOMI Extremity: Tenderness (Right gluteal area, no bony hip tenderness.), No Deformity, No Swelling, Other (Ecchymosis to base of thenar eminence of right hand, no bony tenderness or deformity. ROM of right lower extremity causes pain. ) Neurological/Psych: Oriented x3, Normal Speech, Normal Cognition, Normal Motor, Normal Sensation ED Course And Treatment O2 Sat by Pulse Oximetry: 95 (Room air) Pulse Ox Interpretation: Normal - Other Rad Right hip x-ray X-Ray: Interpreted by Me, Viewed By Me Interpretation: No acute fractures or dislocations. Progress Note: Right hip x-ray ordered. Tylenol with codiene and valium administered. Patient reports she is still having pain ambulation, toradol administered. On reevaluation, patient is ambulatory in the emergency department with no signs of discomfort. Patient was advised to follow up with their PMD in 1-2 days. Disposition Counseled Patient/Family Regarding: Diagnosis, Need For Followup, Rx Given - Disposition Disposition: HOME/ ROUTINE Disposition Time: 22:13 Condition: STABLE Additional Instructions: Please follow up with PMD Continue pain meds as directed Apply ICE to right buttock area Return to ER if worse Prescriptions: diaZEpam [Valium] 5 mg PO TID #10 tab Instructions: Muscle Strain (ED), Contusion in Adults (ED) Forms: [facility] (Spanish), Work Excuse - Clinical Impression Clinical Impression: Strain of right hip, Contusion, buttock - Scribe Statement The provider has reviewed the documentation as recorded by the Deric Arias All medical record entries made by the Deric were at my direction and personally dictated by me. I have reviewed the chart and agree that the record accurately reflects my personal performance of the history, physical exam, medical decision making, and the department course for this patient. I have also personally directed, reviewed, and agree with the discharge instructions and disposition.
--- NOTE | 2017-08-08 09:30 | RAD ---
PROCEDURE: Right Hip Radiographs. HISTORY: pain, fell in a split COMPARISON: None. FINDINGS: BONES: Normal. No fracture. JOINTS: Normal. SOFT TISSUES: Normal. OTHER FINDINGS: None. IMPRESSION: Normal radiographs of right hip.
== END 2017-08-07 22:31 | disposition home or self-care (01) ==
LOC: C.ER 19:24
DX: S76.011A Strain of muscle, fascia and tendon of right hip, initial encounter (principal); S30.0XXA Contusion of lower back and pelvis, initial encounter; W01.0XXA Fall on same level from slipping, tripping and stumbling without subsequent striking against object, initial encounter
CPT/HCPCS: 73502; 96372; 99284; J1885

== ENCOUNTER 2017-08-11 14:31 | Emergency (ER) | payer OTHER ==
[2017-08-11 14:31] VITALS: BMI 28.3
[2017-08-11 15:03] VITALS: BP 122/72; PULSE 116; RESP 20; TEMP 98; O2SAT 100
--- NOTE | 2017-08-11 15:40 | C.PDOC ---
History Of Present Illness 61 y/o female presents to the ED for evaluation. The patient was administered abdominal MRI from the PMD after the trip and fall that took place 08/07/2017. The patient was seen by an ER physician at [facility] and received a Hip X- ray. The results were negative for the Hip X-Ray. The outpatient pelvic MRI report was reviewed 08/10/2017. The patient is able to walk but does have a persisting pain to the area. The patient notes having bruising to the right hip and inner thigh, and thigh swelling. The patient denies anticoagulation use, dizziness, no calf swelling and headache. REFERRED PMD FOR ABN MRI. PS S/P TRIP AND FALL 08/07, SEEN AND DC FROM ER. NEG HIP XRAY. OUPT PELVIC MRI 08/10 REPORT REVIEWED. PT AMBUL BUT W PERSIST PAIN TO AREA. +NEW ONSET BRUISING TO R HIP, INNER THIGH. ?THIGH SWELL. NO CALF SWELL, CP , SOB. DENIES ANTICOAG USE. MOD RELIEF W TYL #3 AND IBUPROFEN 600 MG EXAM NONTOXIC NAD EXT NO DEFORM, MALROTATION. +BRUISING R INNER THIGH, OUTER HIP. AROM WO DIFF. NO CALF SWELL, NONTEND SKIN INTACT, NO INDURATION, ERYTHEMA NEURO INTACT Time Seen by Provider: 08/11/17 15:12 Chief Complaint (Nursing): Trauma History Per: Patient History/Exam Limitations: no limitations Onset/Duration Of Symptoms: Days Current Symptoms Are (Timing): Still Present Past Medical History Reviewed: Historical Data, Nursing Documentation, Vital Signs Vital Signs: Last Vital Signs Temp 98 F 08/11/17 15:00 Pulse 116 H 08/11/17 15:00 Resp 20 08/11/17 15:00 BP 122/72 08/11/17 15:00 Pulse Ox 100 08/11/17 16:26 - Medical History PMH: Arthritis, Asthma, COPD, Diabetes, Hypercholesterolemia, Kidney Stones, Chronic Kidney Disease Denies: HTN Surgical History: Endoscopy, Tonsillectomy - [facility] Procedures EXC LES SOFT TISSUE NEC (02/26/15) OTHER THERAPEUTIC APHERESIS (02/26/15) TENDON SHEATH EXPLORAT (02/26/15) URETERAL CATHETERIZATION (06/27/14) Family History: States: Unknown Family Hx - Social History Hx Tobacco Use: Yes Hx Alcohol Use: Yes (occasional) Hx Substance Use: No - Immunization History Hx Tetanus Toxoid Vaccination: No Hx Influenza Vaccination: No Hx Pneumococcal Vaccination: No Review Of Systems Except As Marked, All Systems Reviewed And Found Negative. Constitutional: Negative for: Fever, Chills Respiratory: Negative for: Cough, Shortness of Breath Gastrointestinal: Positive for: Abdominal Pain. Negative for: Nausea, Vomiting Skin: Positive for: Bruising. Negative for: Rash, Lesions Physical Exam - Physical Exam Appears: Non-toxic, No Acute Distress, Other Skin: Dry Head: Atraumatic, Normacephalic Oral Mucosa: Moist Neck: Supple Chest: Symmetrical Cardiovascular: Rhythm Regular Respiratory: Normal Breath Sounds, No Rales, No Rhonchi, No Wheezing Gastrointestinal/Abdominal: Soft, No Tenderness, No Guarding, No Rebound Extremity: No Tenderness, No Calf Tenderness, Capillary Refill (<2sec.), Other ( bruising on the right inner thigh, outer hip, no induration ,and active range of motion without difficulty ) Neurological/Psych: Oriented x3, Normal Speech, Normal Cognition ED Course And Treatment - Laboratory Results Result Diagrams: 08/11/17 16:00 O2 Sat by Pulse Oximetry: 100 (RA) Progress Note: The patient was administered Blood Work and Venous Duplex scan Low (Vasclab). The exams are unremarkable. The patient is resting comfortably. Upon reassessment, the patient is afebrile and is Po tolernat. The patient is advised to have a 1-2 day follow up with PMD for further evaluation. Progress - Re-Evaluation Re-evaluation Note: 08/11/17 15:40 D/W DR AHMADI: REQUESTS H/H, VASC R/O DOPPLER. PT UNABLE TO RECEIVE ANTICOAG TX DUE TO EXTENSIVE BRUISING, WILL DEFER TX AT THIS TIME. - Data Reviewed Data Reviewed: Old records - Continuity of Care Discussed patient case with:: Patient, Family-HIPPA compliant, PMD Disposition Counseled Patient/Family Regarding: Studies Performed, Diagnosis, Need For Followup - Disposition Referrals: Angela Ahmadi MD [Staff Provider] - Disposition: HOME/ ROUTINE Disposition Time: 17:05 Condition: GOOD Instructions: Hematoma (ED) Forms: [facility] (Belarusian) - Clinical Impression Clinical Impression: Leg hematoma - Scribe Statement The provider has reviewed the documentation as recorded by the Scribe Shawnee Beltran All medical record entries made by the Scribe were at my direction and personally dictated by me. I have reviewed the chart and agree that the record accurately reflects my personal performance of the history, physical exam, medical decision making, and the department course for this patient. I have also personally directed, reviewed, and agree with the discharge instructions and disposition.
[2017-08-11 16:09] LABS: HEMATOCRIT 39.9 % (34.0-47.0)
--- NOTE | 2017-08-13 14:26 | VASCLAB ---
PROCEDURE: Right Lower Extremity Venous Duplex Exam. HISTORY: SWELLING RO DVT PRIORS: None. TECHNIQUE: Right common femoral, femoral, popliteal and posterior tibial, peroneal and great saphenous veins were evaluated. Flow was assessed with color Doppler, compressibility, assessment of phasic flow and augmentation response. Report prepared by SHIVA Polanco FINDINGS: RIGHT: 1. Common Femoral Vein: 1.1. Compressibility - Fully compressible: Thrombus - None: Flow - Phasic: Augmentation -Normal: Reflux - None. 2. Femoral Vein: 2.1. Compressibility - Fully compressible: Thrombus - None: Flow - Phasic: Augmentation -Normal: Reflux - None. 3. Popliteal Vein: 3.1. Compressibility - Fully compressible: Thrombus - None: Flow - Phasic: Augmentation -Normal: Reflux - None. 4. Posterior Tibial Vein: 4.1. Compressibility - Fully compressible: Thrombus - None: Flow - Phasic: Augmentation -Normal: Reflux - None. 5. Peroneal Vein: 5.1. Compressibility - Fully compressible: Thrombus - None: Flow - Phasic: Augmentation -Normal: Reflux - None. 6. Great Saphenous Vein: 6.1. Compressibility - Fully compressible: Thrombus -None: Flow - Phasic: Augmentation - Normal: Reflux - None. OTHER FINDINGS: IMPRESSION: No evidence of deep or superficial vein thrombosis of the right lower extremity with excellent venous flow. Normal valve function noted of the right side. Normal venous flow noted in the left common femoral vein.
== END 2017-08-11 17:17 | disposition home or self-care (01) ==
LOC: C.ER 14:31
DX: S80.11XA Contusion of right lower leg, initial encounter (principal); W01.0XXA Fall on same level from slipping, tripping and stumbling without subsequent striking against object, initial encounter; E78.00 Pure hypercholesterolemia, unspecified; E11.9 Type 2 diabetes mellitus without complications; N18.9 Chronic kidney disease, unspecified; Z87.891 Personal history of nicotine dependence

== ENCOUNTER → 2019-01-21 | Outpatient (CLI) | payer OTHER | END | disposition home or self-care (01) | LOC: C.DEXAIC 15:42 | DX: E10.9 Type 1 diabetes mellitus without complications (principal); J43.9 Emphysema, unspecified; I10 Essential (primary) hypertension; M25.572 Pain in left ankle and joints of left foot ==

== ENCOUNTER 2019-02-16 14:43 | Inpatient (IN) | payer OTHER, MEDICARE ==
[2019-02-16 14:43] VITALS: BMI 28.3
[2019-02-16] MEDS ORDERED: Albuterol-Ipratrop 3 mg / 0.5 (3 ml) UD INH STA ×3 (14:56→15:55)
[2019-02-16] MEDS ORDERED: Albuterol-Ipratrop 3 mg / 0.5 (3 ml) UD ONE ×3 (14:57→16:07)
[2019-02-16] MEDS ORDERED: Piperacill/Tazo 3.375gm in Dex 3.375 GM/50 ML BAG IV STA (15:12)
--- NOTE | 2019-02-16 15:14 | C.PDOC ---
History Of Present Illness Patient is a 63 yr old female smoker who is c/o cough & SOB since February 05. Currently she is failing outpatient treatment. She is currently taking Augmentin, doxycycline, and medrol doespak (all prescribed by Dr. Ahmadi) and also taking Omnicef (prescribed by Dr. Kamara) for her symptoms. Last cigarette was approximately 1 hour ago. On Sunday, Dr. Ahmadi recommended that the patient be hospitalized but she wanted to wait until today to go to her grand- daughter's communion. Pt states that her ribs hurt when she coughs. Dr. Ahmadi recommends admission and starting patient on Zosyn. Time Seen by Provider: 02/16/19 14:53 Chief Complaint (Nursing): Shortness Of Breath History Per: Patient Onset/Duration Of Symptoms: Days Current Symptoms Are (Timing): Still Present Past Medical History Reviewed: Historical Data, Nursing Documentation, Vital Signs Vital Signs: Last Vital Signs Temp 99.2 F 02/16/19 14:46 Pulse 122 H 02/16/19 14:46 Resp 20 02/16/19 14:46 BP 147/84 02/16/19 14:46 Pulse Ox 100 02/16/19 14:46 Primary Care Provider: Angela Ahmadi - Medical History PMH: Arthritis, Asthma, COPD, Diabetes, HTN, Hypercholesterolemia, Kidney Stones, Chronic Kidney Disease Surgical History: Endoscopy, Tonsillectomy - [facility] Procedures EXC LES SOFT TISSUE NEC (02/26/15) OTHER THERAPEUTIC APHERESIS (02/26/15) TENDON SHEATH EXPLORAT (02/26/15) URETERAL CATHETERIZATION (06/27/14) Family History: States: Unknown Family Hx - Social History Hx Tobacco Use: Yes Hx Alcohol Use: Yes (occasional) Hx Substance Use: No - Immunization History Hx Tetanus Toxoid Vaccination: No Hx Influenza Vaccination: No Hx Pneumococcal Vaccination: No Review Of Systems Except As Marked, All Systems Reviewed And Found Negative. Constitutional: Negative for: Fever Respiratory: Positive for: Cough, Shortness of Breath Gastrointestinal: Negative for: Vomiting, Abdominal Pain Skin: Negative for: Rash Physical Exam - Physical Exam Appears: Non-toxic, No Acute Distress Skin: Warm, Dry Eye(s): bilateral: Normal Inspection, EOMI, Other (uses glasses) Ear(s): Bilateral: Normal Nose: Normal Oral Mucosa: Moist Tongue: Normal Appearing Lips: Normal Appearing Neck: Normal, Normal ROM Chest: Symmetrical Cardiovascular: Rhythm Regular, Other (tachycardic) Respiratory: Wheezing (extensive bilaterally) Gastrointestinal/Abdominal: Bowel Sounds, Soft, No Tenderness Rectal: Deferred Back: Normal Inspection Extremity: Bilateral: Atraumatic Neurological/Psych: Oriented x3, Normal Speech, Normal Cognition, Normal Motor, Normal Sensation ED Course And Treatment - Laboratory Results Result Diagrams: 02/16/19 15:14 02/16/19 15:14 O2 Sat by Pulse Oximetry: 100 Medical Decision Making Medical Decision Making: Initial Impression: COPD exacerbation, clinical pneumonia failing outpatient treatment Initial Plan: Will give nebs, check labs and give antibiotics + steroids. Dr. Ahmadi informed and agrees w/ need for admission. Recommends starting patient on IV Zosyn. Disposition - Disposition Disposition: HOSPITALIZED Disposition Time: 15:28 Condition: FAIR - Clinical Impression Clinical Impression: COPD (chronic obstructive pulmonary disease), Pneumonia Decision To Admit - Pt Status Changed To: Hospital Disposition Of: Inpatient - Admit Certification Admit to Inpatient:: After my assessment, the patient will require hospitalization for at least two midnights. This is because of the severity of symptoms shown, intensity of services needed, and/or the medical risk in this patient being treated as an outpatient. - InPatient: Physician Admission Certification: I certify that this patient requires 2 or more midnights of care for the following reason:: Patient is failing outpatient treatment - . Bed Request Type: Regular Admitting Physician: Angela Ahmadi Patient Diagnosis: COPD (chronic obstructive pulmonary disease), Pneumonia
[2019-02-16] MEDS ORDERED: Piperacillin/Tazobact 3.375 gm 100 ML IVPB ONE (15:20)
[2019-02-16 15:21] LABS: BASO # 0.1 K/uL (0.0-0.2); BASO % 0.8 % (0.0-2.0); EOS % 0.1 % (0.0-4.0); HEMOGLOBIN 14.8 g/dL (11.0-16.0); LYMPH # 1.9 K/uL (1.0-4.3); LYMPH % 18.9 % (20.0-40.0); MEAN CELL VOLUME 91.9 fL (81.0-99.0); MEAN CORPUSCULAR HEMOGLOBIN 30.6 pg (27.0-31.0); MEAN CORPUSCULAR HGB CONC 33.3 g/dL (33.0-37.0); MEAN PLATELET VOLUME 6.7 fL (7.2-11.7); MONO # 0.6 K/uL (0.0-0.8); MONO % 6.3 % (0.0-10.0); NEUT # 7.6 K/uL (1.8-7.0); NEUT % 73.9 % (50.0-75.0); RBC 4.84 Mil/uL (3.80-5.20); RED CELL DISTRIBUTION WIDTH 15.4 % (11.5-14.5); WHITE BLOOD COUNT 10.2 K/uL (4.8-10.8)
[2019-02-16] MEDS ORDERED: methylPREDNISolone 125 MG in Sodium Chloride 0.9% 100 ML IVPB ONE (15:26)
[2019-02-16 15:33] LABS: ALB/GLOB RATIO 1.5 (1.0-2.1); ALBUMIN 4.5 g/dL (3.5-5.0); ALT/SGPT 44 U/L (9-52); AST/SGOT 27 U/L (14-36); BLOOD UREA NITROGEN 25 mg/dL (7-17); CALCIUM 10.3 mg/dl (8.6-10.4); GFR NON-AFRICAN AMERICAN > 60
[2019-02-16 15:39] LABS: B-TYPE NATRIURETIC PEPTIDE 48.9 pg/mL (0-900)
[2019-02-16] MEDS ORDERED: guaiFENesin DM 100 mg-10 mg/5 ml UD PO STA (16:09)
[2019-02-16] MEDS ORDERED: guaiFENesin DM 100 mg-10 mg/5 ml UD ONE (16:18)
--- NOTE | 2019-02-16 16:30 | RAD ---
Date of service: 02/16/2019 HISTORY: Cough r/o Pneumonia COMPARISON: Comparison is made with 02/28/2016 TECHNIQUE: Chest PA and lateral views FINDINGS: LUNGS: Small infiltrate at the right lower lobe. PLEURA: No significant pleural effusion identified. No pneumothorax apparent. CARDIOVASCULAR: No aortic atherosclerotic calcification present. Normal cardiac size. No pulmonary vascular congestion. OSSEOUS STRUCTURES: No significant abnormalities. VISUALIZED UPPER ABDOMEN: Normal. OTHER FINDINGS: None. IMPRESSION: Small infiltrate at the right lower lobe may represent pneumonia.
[2019-02-16 17:56] VITALS: RESP 20
[2019-02-16] MEDS ORDERED: Albuterol-Ipratrop 3 mg / 0.5 (3 ml) UD INH ONE (21:50)
[2019-02-16] MEDS: (Novolin R) Insulin Human Regular 100 units/ml vial SC SCH (21:56)
[2019-02-16] MEDS: MethylPREDNISolone 40 mg Vial IVP SCH (22:01)
[2019-02-17] MEDS: Albuterol-Ipratrop 3 mg / 0.5 (3 ml) UD INH SCH ×4 (02:15→20:35)
[2019-02-17] MEDS: (Novolin R) Insulin Human Regular 100 units/ml vial SC SCH ×4 (08:20→21:30)
[2019-02-17] MEDS: Budesonide 0.5 mg/2 ml Inhal Susp UD INH SCH ×2 (08:32→20:35)
[2019-02-17] MEDS: MethylPREDNISolone 40 mg Vial IVP SCH ×2 (09:20→21:30)
[2019-02-17] MEDS: cefTRIAXone IV 1 gm in Dextros 50 ML IVPB SCH (09:20)
[2019-02-17] MEDS ORDERED: Azithromycin 500 MG in Sodium Chloride 0.9% 250 ML IVPB SCH (10:00)
--- NOTE | 2019-02-17 17:09 | CT ---
Date of service: 02/17/2019 PROCEDURE: CT Chest without contrast HISTORY: Pneumonia. COMPARISON: Comparison made with prior CT chest 12/16/2018. TECHNIQUE: Contiguous axial images were obtained through the chest without intravenous contrast enhancement. Sagittal and coronal reconstructions were performed. Radiation dose: Total exam DLP = 337.96 mGy-cm. This CT exam was performed using one or more of the following dose reduction techniques: Automated exposure control, adjustment of the mA and/or kV according to patient size, and/or use of iterative reconstruction technique. FINDINGS: LUNGS: Minor linear/curvilinear atelectasis and or scarring left lingular region.. Biapical pleural thickening. There are also paraseptal emphysematous changes seen in the lung apices and upper lobes.. The interstitial markings are increased and coarsened which could be related COPD as per patient's history. No focal consolidation MEDIASTINUM: Heart size within range of normal. No significant pericardial effusion Minor aortic atherosclerotic calcification. Ascending thoracic aorta measures approximately 3 cm and descending thoracic aorta measures approximately 2.4 cm. Pulmonary trunk measures approximately 2.3 cm. There are a few small nonspecific mediastinal lymph nodes. Evaluation for hilar adenopathy limited due to the lack of circulating intravenous contrast material. Trachea midline and patent with no large central endoluminal lesions. There is a small hiatal hernia. PLEURA: No pleural fluid. No pneumothorax. BONES: Minor multilevel degenerative spondylosis of the thoracic spine. UPPER ABDOMEN: There is a small low-attenuation left adrenal nodule measuring approximately 14 mm which may represent an adenoma. OTHER FINDINGS: None. IMPRESSION: Minor linear/curvilinear atelectasis and or scarring left lingular region.. Biapical pleural thickening. There are also paraseptal emphysematous changes seen in the lung apices and upper lobes.. The interstitial markings are increased and coarsened which could be related COPD as per patient's history. No focal consolidation. Suspect left adrenal adenoma
--- NOTE | 2019-02-17 17:56 | CP.PCM.HP ---
History of Present Illness - History of Present Illness History of Present Illness: Chief complaint: Shortness of breath HPI: 63-year-old female with a history of hypertension diabetes hypercholesterolemia COPD osteoarthritis and chronic back pain. Patient also had a history of a hematoma in the left groin following an injury. Patient came to the office 2 to 3 weeks ago with the shortness of breath. Initially given Augmentin, prednisone for possible COPD exacerbation. After the course the patient did not improve, and again doxycycline was given. But patient did not show any improvement, she continues to have a worsening cough, associated with the shortness of breath. I advised her to go to the emergency room. In the emergency room patient was evaluated. Worsening shortness of breath noted. Increasing oxygen demand, inhaled inhalers necessary. Patient needed hospitalization Now having increasing cough, mostly dry, associated with the chest tightness, wheezing and shortness of breath unable to complete a sentence. Having hard time and walking also. Denies any nausea vomiting no fever no other constitutional symptoms, some headache noted. Past medical history: Diabetes hypertension hypercholesterolemia COPD Allergies no known drug allergy Personal history continues to smoke. 1 pack/day. For many years. Denies any alcohol. Good functional capacity except now Family history significant for heart disease Surgical history noted. Review of system: Denies any headache, no visual symptom, complaining of cough wheezing shortness of breath. Coughing with wheezing noted. Resting shortness of breath also noted. No fever chills. Mostly dry cough On examination: Vital signs noted. Chest bilateral wheezing and rales noted regular [place] nontender abdomen no pedal edema X-ray showing no infiltrate. Labs reviewed and nonspecific Assessment and recommendation: Patient is a 63-year-old female with a history of diabetes hypertension high cholesterol. Now admitted with a COPD exacerbation failed outpatient treatment. Intravenous corticosteroid. Antibiotic. Also we will start the patient on inhaled corticosteroid. Mucomyst. Glucose control. DVT and GI prophylaxis and will follow the patient Present on Admission - Present on Admission Any Indicators Present on Admission: No History of DVT/PE: No History of Uncontrolled Diabetes: No Urinary Catheter: No Decubitus Ulcer Present: No Past Patient History - Past Medical History & Family History Past Medical History?: Yes - Past Social History Smoking Status: Heavy Smoker > 10 Cigarettes Daily - CARDIAC Hx Hypercholesterolemia: Yes Hx Hypertension: Yes - PULMONARY Hx Chronic Obstructive Pulmonary Disease (COPD): Yes - NEUROLOGICAL Hx Neurological Disorder: No - HEENT Hx HEENT Problems: No - RENAL Hx Chronic Kidney Disease: Yes Hx Kidney Stones: Yes - ENDOCRINE/METABOLIC Hx Endocrine Disorders: Yes Hx Diabetes Mellitus Type 2: Yes - HEMATOLOGICAL/ONCOLOGICAL Hx Blood Disorders: No - INTEGUMENTARY Hx Dermatological Problems: No - MUSCULOSKELETAL/RHEUMATOLOGICAL Hx Arthritis: Yes - GASTROINTESTINAL Hx Gastrointestinal Disorders: Yes Hx Gastroesophageal Reflux: Yes Other/Comment: ABDOMINAL PAIN - GENITOURINARY/GYNECOLOGICAL Hx Genitourinary Disorders: Yes Other/Comment: KIDNEY STONES - PSYCHIATRIC Hx Substance Use: No - SURGICAL HISTORY Hx Tonsillectomy: Yes - ANESTHESIA Hx Anesthesia: Yes Hx Anesthesia Reactions: Yes (NAUSEA AND VOMITING) Hx Malignant Hyperthermia: No Meds Allergies/Adverse Reactions: Allergies Allergy/AdvReac Type Severity Reaction Status Date / Time acetaminophen [From Percocet] Allergy VOMITING Verified 02/16/19 19:21 oxycodone HCl [From Percocet] Allergy VOMITING Verified 02/16/19 19:21 flu vaccine Allergy SWELLING Uncoded 02/16/19 19:21 pnuemonia vaccine Allergy SWELLING Uncoded 02/16/19 19:21 Results - Vital Signs Recent Vital Signs: Last Vital Signs Temp 97.9 F 02/17/19 16:00 Pulse 106 H 02/17/19 16:00 Resp 20 02/17/19 16:00 BP 115/68 02/17/19 16:00 Pulse Ox 95 02/17/19 16:00 - Labs Result Diagrams: 02/18/19 07:51 02/18/19 07:52 Labs: Laboratory Results - last 24 hr 02/16/19 02/17/19 02/17/19 21:26 07:31 11:13 POC Glucose (mg/dL) 366 H 239 H 264 H 02/17/19 16:11 POC Glucose (mg/dL) 425 H*
--- NOTE | 2019-02-17 21:52 | CARD ---
APPROVED REPORT Date of service: 02/16/2019 EKG Measurement Heart [id number] <Conclusion> Sinus tachycardia Possible Left atrial enlargement Borderline ECG
[2019-02-18] MEDS: Promethazine 6.25 MG/5 ML CUP PO PRN ×3 (00:10→21:18)
[2019-02-18] MEDS: Albuterol-Ipratrop 3 mg / 0.5 (3 ml) UD INH SCH ×3 (01:37→20:31)
[2019-02-18 07:56] LABS: HEMOGLOBIN 14.4 g/dL (11.0-16.0); MEAN CELL VOLUME 92.8 fL (81.0-99.0); MEAN CORPUSCULAR HEMOGLOBIN 30.8 pg (27.0-31.0); MEAN CORPUSCULAR HGB CONC 33.2 g/dL (33.0-37.0); MEAN PLATELET VOLUME 6.9 fL (7.2-11.7); RBC 4.67 Mil/uL (3.80-5.20); RED CELL DISTRIBUTION WIDTH 15.4 % (11.5-14.5); WHITE BLOOD COUNT 11.6 K/uL (4.8-10.8)
[2019-02-18] MEDS: (Novolin R) Insulin Human Regular 100 units/ml vial SC SCH ×4 (08:20→21:17)
[2019-02-18 08:30] LABS: ALB/GLOB RATIO 1.3 (1.0-2.1); ALBUMIN 4.3 g/dL (3.5-5.0); BLOOD UREA NITROGEN 24 mg/dL (7-17); CALCIUM 9.3 mg/dl (8.6-10.4); GFR NON-AFRICAN AMERICAN > 60
[2019-02-18 08:33] LABS: ALT/SGPT 38 U/L (9-52); AST/SGOT 31 U/L (14-36)
[2019-02-18] MEDS: MethylPREDNISolone 40 mg Vial IVP SCH ×2 (09:40→21:18)
[2019-02-18] MEDS: cefTRIAXone IV 1 gm in Dextros 50 ML IVPB SCH (09:41)
[2019-02-18] MEDS: Budesonide 0.5 mg/2 ml Inhal Susp UD INH SCH ×2 (09:49→20:32)
[2019-02-18] MEDS ORDERED: Pneumococcal 23-Valent Vaccine IM ONE (10:00)
--- NOTE | 2019-02-18 21:11 | CP.PCM.PN ---
Subjective - Date & Time of Evaluation Date of Evaluation: 02/18/19 Time of Evaluation: 21:10 - Subjective Subjective: I evaluated this patient this morning. Room air oxygen saturation was 97%. But she still continues to have a resting shortness of breath. Patient is able to ambulate, and she can able to complete a sentence without problem. Wheezing and chest tightness still present. Clinical examination was unremarkable but except the bilateral diffuse wheezing and rhonchi noted I reviewed the patient's a CAT scan. Bilateral emphysematous lung changes noted, but no acute infiltrate noted. Patient's sugar is noted, elevated, currently controlled with medications. Assessment and recommendation: Patient is a 63-year-old female with a history of hypertension diabetes high cholesterol COPD exacerbation now. We will monitor the glucose. We will continue the current treatment. Added Mucomyst and will follow the patient Objective - Vital Signs/Intake and Output Vital Signs (last 24 hours): Temp Pulse Resp BP Pulse Ox 98.0 F 106 H 20 119/66 96 02/18/19 16:38 02/18/19 16:38 02/18/19 16:38 02/18/19 16:38 02/18/19 16:38 - Medications Medications: Current Medications Acetylcysteine (Acetylcysteine 20%) 4 ml INH Q12 [facility] Albuterol/Ipratropium (Duoneb 3 Mg/0.5 Mg (3 Ml) Ud) 3 ml INH RQ6 [facility]ISEO Last Admin: 02/18/19 20:31 Dose: 3 ml Azithromycin (Zithromax) 500 mg PO DAILY [facility]; Protocol Last Admin: 02/18/19 09:59 Dose: 500 mg Budesonide (Pulmicort Respules) 0.5 mg INH RQ12 [facility] Last Admin: 02/18/19 20:32 Dose: Not Given Heparin Sodium (Porcine) (Heparin) 5,000 units SC Q8 [facility]ISE[facility] Last Admin: 02/18/19 14:04 Dose: 5,000 units Ceftriaxone Sodium (Rocephin Iv 1 Gm Duplex) 50 mls @ 100 mls/hr IVPB DAILY [facility] ; Protocol Last Admin: 02/18/19 09:41 Dose: 100 mls/hr Insulin Human Regular (Novolin R) 0 unit SC ACHS [facility]ISEO; Protocol Last Admin: 02/18/19 16:40 Dose: 2 u Losartan Potassium (Cozaar) 50 mg PO DAILY [facility] Last Admin: 02/18/19 09:40 Dose: 50 mg Metformin HCl (Glucophage) 850 mg PO BID [facility] Last Admin: 02/18/19 17:40 Dose: 850 mg Methylprednisolone (Solu-Medrol) 40 mg IVP Q12 [facility] Last Admin: 02/18/19 09:40 Dose: 40 mg Montelukast Sodium (Singulair) 10 mg PO HS [facility] Last Admin: 02/17/19 21:30 Dose: 10 mg Promethazine HCl (Phenergan Syrup) 6.25 mg PO Q8 PRN PRN Reason: Cough Last Admin: 02/18/19 09:41 Dose: 6.25 mg Rosuvastatin Calcium (Crestor) 5 mg PO HS [facility] Last Admin: 02/17/19 21:30 Dose: 5 mg Sitagliptin Phosphate (Januvia) 25 mg PO DAILY [facility] Last Admin: 02/18/19 09:40 Dose: 25 mg - Labs Labs: 02/18/19 07:51 02/18/19 07:52
[2019-02-18] MEDS: Acetylcysteine 20% Inhal Soln (4ml) INH SCH (21:23)
[2019-02-19] MEDS: Albuterol-Ipratrop 3 mg / 0.5 (3 ml) UD INH SCH ×4 (01:18→20:53)
[2019-02-19] MEDS: Budesonide 0.5 mg/2 ml Inhal Susp UD INH SCH ×2 (07:45→20:54)
[2019-02-19] MEDS: Acetylcysteine 20% Inhal Soln (4ml) INH SCH ×2 (07:45→20:53)
[2019-02-19] MEDS: (Novolin R) Insulin Human Regular 100 units/ml vial SC SCH ×4 (08:26→21:34)
[2019-02-19 08:51] LABS: BASO % 0.2 % (0.0-2.0); HEMOGLOBIN 14.6 g/dL (11.0-16.0); LYMPH % 16.7 % (20.0-40.0); MEAN CELL VOLUME 92.5 fL (81.0-99.0); MEAN CORPUSCULAR HEMOGLOBIN 31.1 pg (27.0-31.0); MEAN CORPUSCULAR HGB CONC 33.6 g/dL (33.0-37.0); MEAN PLATELET VOLUME 6.9 fL (7.2-11.7); MONO # 0.7 K/uL (0.0-0.8); MONO % 5.5 % (0.0-10.0); NEUT # 9.2 K/uL (1.8-7.0); NEUT % 77.6 % (50.0-75.0); NRBC % 0.1 % (0.0-2.0); RBC 4.69 Mil/uL (3.80-5.20); WHITE BLOOD COUNT 11.9 K/uL (4.8-10.8)
[2019-02-19 09:04] LABS: BLOOD UREA NITROGEN 23 mg/dL (7-17); CALCIUM 9.9 mg/dl (8.6-10.4); GFR NON-AFRICAN AMERICAN > 60
[2019-02-19] MEDS: MethylPREDNISolone 40 mg Vial IVP SCH ×2 (09:53→21:34)
[2019-02-19] MEDS: cefTRIAXone IV 1 gm in Dextros 50 ML IVPB SCH (09:53)
[2019-02-19] MEDS: Promethazine 6.25 MG/5 ML CUP PO PRN (21:33)
--- NOTE | 2019-02-19 21:53 | CP.PCM.PN ---
Subjective - Date & Time of Evaluation Date of Evaluation: 02/19/19 Time of Evaluation: 21:52 - Subjective Subjective: Patient is still having some wheezing, but be able to walk without any problem. Patient is able to complete a sentence without any problem. Wheezing noted. Mild mucus production noted. No fever. Blood sugar is somewhat better On examination: Vital signs stable. Regular heart sound. Nontender abdomen. No pedal edema Blood cultures are negative. CAT scan reviewed Assessment and recommendation: 63-year-old female with history of hypertension diabetes high cholesterol history of COPD. Chronic smoker. Admitted to the hospital with acute exacerbation of COPD. We will taper the steroid. Monitor oxygen saturation upon walking. If it is stable tomorrow we will plan for DC Objective - Vital Signs/Intake and Output Vital Signs (last 24 hours): Temp Pulse Resp BP Pulse Ox 97.4 F L 100 H 20 103/72 95 02/19/19 17:52 02/19/19 17:52 02/19/19 17:52 02/19/19 17:52 02/19/19 17:52 Intake and Output: 02/19/19 02/20/19 18:59 06:59 Intake Total 530 Balance 530 - Medications Medications: Current Medications Acetylcysteine (Acetylcysteine 20%) 4 ml INH RQ12 [facility] Last Admin: 02/19/19 20:53 Dose: 4 ml Albuterol/Ipratropium (Duoneb 3 Mg/0.5 Mg (3 Ml) Ud) 3 ml INH RQ6 [facility] Last Admin: 02/19/19 20:53 Dose: 3 ml Azithromycin (Zithromax) 500 mg PO DAILY [facility]; Protocol Last Admin: 02/19/19 09:52 Dose: 500 mg Budesonide (Pulmicort Respules) 0.5 mg INH RQ12 [facility] Last Admin: 02/19/19 20:54 Dose: 0.5 mg Heparin Sodium (Porcine) (Heparin) 5,000 units SC Q8 [facility] Last Admin: 02/19/19 21:34 Dose: 5,000 units Ceftriaxone Sodium (Rocephin Iv 1 Gm Duplex) 50 mls @ 100 mls/hr IVPB DAILY [facility]; Protocol Last Admin: 02/19/19 09:53 Dose: 100 mls/hr Insulin Human Regular (Novolin R) 0 unit SC ACHS [facility]; Protocol Last Admin: 02/19/19 21:34 Dose: Not Given Losartan Potassium (Cozaar) 50 mg PO DAILY [facility] Last Admin: 02/19/19 09:52 Dose: 50 mg Metformin HCl (Glucophage) 850 mg PO BID [facility] Last Admin: 02/19/19 17:10 Dose: 850 mg Methylprednisolone (Solu-Medrol) 40 mg IVP Q12 [facility] Last Admin: 02/19/19 21:34 Dose: 40 mg Montelukast Sodium (Singulair) 10 mg PO HS [facility] Last Admin: 02/19/19 21:33 Dose: 10 mg Promethazine HCl (Phenergan Syrup) 6.25 mg PO Q8 PRN PRN Reason: Cough Last Admin: 02/19/19 21:33 Dose: 6.25 mg Rosuvastatin Calcium (Crestor) 5 mg PO HS [facility] Last Admin: 02/19/19 21:33 Dose: 5 mg Sitagliptin Phosphate (Januvia) 25 mg PO DAILY [facility] Last Admin: 02/19/19 10:39 Dose: 25 mg - Labs Labs: 02/19/19 08:39 02/19/19 08:39
[2019-02-20] MEDS: Albuterol-Ipratrop 3 mg / 0.5 (3 ml) UD INH SCH ×4 (01:05→21:20)
[2019-02-20] MEDS: (Novolin R) Insulin Human Regular 100 units/ml vial SC SCH ×4 (08:15→22:12)
[2019-02-20] MEDS: Budesonide 0.5 mg/2 ml Inhal Susp UD INH SCH ×2 (09:04→21:20)
[2019-02-20] MEDS: Acetylcysteine 20% Inhal Soln (4ml) INH SCH ×2 (09:04→21:21)
[2019-02-20] MEDS: MethylPREDNISolone 40 mg Vial IVP SCH ×2 (09:49→22:13)
[2019-02-20] MEDS: cefTRIAXone IV 1 gm in Dextros 50 ML IVPB SCH (09:52)
[2019-02-20] MEDS: Promethazine 6.25 MG/5 ML CUP PO PRN (13:46)
--- NOTE | 2019-02-20 22:41 | CP.PCM.PN ---
Subjective - Date & Time of Evaluation Date of Evaluation: 02/20/19 Time of Evaluation: 22:41 Objective - Vital Signs/Intake and Output Vital Signs (last 24 hours): Temp Pulse Resp BP Pulse Ox 97.9 F 100 H 20 108/71 95 02/20/19 15:59 02/20/19 15:59 02/20/19 15:59 02/20/19 15:59 02/20/19 15:59 - Medications Medications: Current Medications Acetylcysteine (Acetylcysteine 20%) 4 ml INH RQ12 [facility] Last Admin: 02/20/19 21:21 Dose: Not Given Albuterol/Ipratropium (Duoneb 3 Mg/0.5 Mg (3 Ml) Ud) 3 ml INH RQ6 [facility] Last Admin: 02/20/19 21:20 Dose: 3 ml Azithromycin (Zithromax) 500 mg PO DAILY [facility]; Protocol Last Admin: 02/20/19 09:50 Dose: 500 mg Budesonide (Pulmicort Respules) 0.5 mg INH RQ12 [facility] Last Admin: 02/20/19 21:20 Dose: 0.5 mg Heparin Sodium (Porcine) (Heparin) 5,000 units SC Q8 [facility] Last Admin: 02/20/19 22:11 Dose: 5,000 units Ceftriaxone Sodium (Rocephin Iv 1 Gm Duplex) 50 mls @ 100 mls/hr IVPB DAILY [facility]; Protocol Last Admin: 02/20/19 09:52 Dose: 100 mls/hr Insulin Human Regular (Novolin R) 0 unit SC ACHS [facility]; Protocol Last Admin: 02/20/19 22:12 Dose: Not Given Losartan Potassium (Cozaar) 50 mg PO DAILY [facility] Last Admin: 02/20/19 09:49 Dose: 50 mg Metformin HCl (Glucophage) 850 mg PO BID [facility] Last Admin: 02/20/19 17:47 Dose: 850 mg Methylprednisolone (Solu-Medrol) 20 mg IVP Q12 [facility] Last Admin: 02/20/19 22:13 Dose: 20 mg Montelukast Sodium (Singulair) 10 mg PO HS [facility] Last Admin: 02/20/19 22:12 Dose: 10 mg Promethazine HCl (Phenergan Syrup) 6.25 mg PO Q8 PRN PRN Reason: Cough Last Admin: 02/20/19 13:46 Dose: 6.25 mg Rosuvastatin Calcium (Crestor) 5 mg PO [facility] Last Admin: 02/20/19 22:11 Dose: 5 mg Sitagliptin Phosphate (Januvia) 25 mg PO DAILY [facility] Last Admin: 02/20/19 09:49 Dose: 25 mg - Labs Labs: 02/19/19 08:39 02/19/19 08:39
[2019-02-21] MEDS: Albuterol-Ipratrop 3 mg / 0.5 (3 ml) UD INH SCH ×4 (02:30→19:32)
[2019-02-21] MEDS: (Novolin R) Insulin Human Regular 100 units/ml vial SC SCH ×4 (08:32→22:31)
[2019-02-21] MEDS: Acetylcysteine 20% Inhal Soln (4ml) INH SCH ×2 (10:04→19:31)
[2019-02-21] MEDS: Budesonide 0.5 mg/2 ml Inhal Susp UD INH SCH ×2 (10:05→19:32)
[2019-02-21] MEDS: cefTRIAXone IV 1 gm in Dextros 50 ML IVPB SCH (10:16)
[2019-02-21] MEDS: MethylPREDNISolone 40 mg Vial IVP SCH (10:17)
[2019-02-21 15:59] VITALS: O2SAT 95
[2019-02-22] MEDS: Albuterol-Ipratrop 3 mg / 0.5 (3 ml) UD INH SCH (01:19)
--- NOTE | 2019-02-22 07:46 | CP.PCM.PN ---
Subjective - Date & Time of Evaluation Date of Evaluation: 02/21/19 Time of Evaluation: 07:46 Objective - Vital Signs/Intake and Output Vital Signs (last 24 hours): Temp Pulse Resp BP Pulse Ox 97.8 F 96 H 20 119/74 95 02/22/19 01:00 02/22/19 01:00 02/22/19 01:00 02/22/19 01:00 02/22/19 01:00 Intake and Output: 02/22/19 02/22/19 06:59 18:59 Intake Total 560 Balance 560 - Medications Medications: Current Medications Acetylcysteine (Acetylcysteine 20%) 4 ml INH RQ12 [facility] Last Admin: 02/21/19 19:31 Dose: 4 ml Azithromycin (Zithromax) 500 mg PO DAILY [facility]; Protocol Last Admin: 02/21/19 10:18 Dose: 500 mg Budesonide (Pulmicort Respules) 0.5 mg INH RQ12 [facility] Last Admin: 02/21/19 19:32 Dose: 0.5 mg Heparin Sodium (Porcine) (Heparin) 5,000 units SC Q8 [facility] Last Admin: 02/22/19 06:02 Dose: 5,000 units Ceftriaxone Sodium (Rocephin Iv 1 Gm Duplex) 50 mls @ 100 mls/hr IVPB DAILY [facility]; Protocol Last Admin: 02/21/19 10:16 Dose: 100 mls/hr Insulin Human Regular (Novolin R) 0 unit SC ACHS [facility]; Protocol Last Admin: 02/21/19 22:31 Dose: Not Given Losartan Potassium (Cozaar) 50 mg PO DAILY [facility] Last Admin: 02/21/19 10:15 Dose: 50 mg Metformin HCl (Glucophage) 850 mg PO BID [facility] Last Admin: 02/21/19 17:04 Dose: 850 mg Methylprednisolone (Solu-Medrol) 20 mg IVP Q12 [facility] Last Admin: 02/21/19 10:17 Dose: 20 mg Montelukast Sodium (Singulair) 10 mg PO HS [facility] Last Admin: 02/21/19 22:40 Dose: 10 mg Promethazine HCl (Phenergan Syrup) 6.25 mg PO Q8 PRN PRN Reason: Cough Last Admin: 02/20/19 13:46 Dose: 6.25 mg Rosuvastatin Calcium (Crestor) 5 mg PO HS [facility] Last Admin: 02/21/19 22:40 Dose: 5 mg Sitagliptin Phosphate (Januvia) 25 mg PO DAILY [facility] Last Admin: 02/21/19 10:17 Dose: Not Given - Labs Labs: 02/19/19 08:39 02/19/19 08:39
--- NOTE | 2019-02-22 07:46 | CP.PCM.DIS ---
Provider - Provider Date of Admission: 02/16/19 15:56 Attending physician: Angela Ahmadi MD Consults: 02/17/19 10:00 Inpatient [employer] Core Measures Referral Routine Comment: Physician Instructions: Reason For Exam: COPD Hospital Course - Lab Results Lab Results: Micro Results 02/16/19 15:00 Blood Blood Culture - Final NO GROWTH AFTER 5 DAYS 02/16/19 15:00 Blood Gram Stain - Final TEST NOT PERFORMED 02/16/19 15:10 Blood Blood Culture - Final NO GROWTH AFTER 5 DAYS 02/16/19 15:10 Blood Gram Stain - Final TEST NOT PERFORMED Most Recent Lab Values WBC 11.9 K/uL (4.8-10.8) H 02/19/19 08:39 RBC 4.69 Mil/uL (3.80-5.20) 02/19/19 08:39 Hgb 14.6 g/dL (11.0-16.0) 02/19/19 08:39 Hct 43.4 % (34.0-47.0) 02/19/19 08:39 MCV 92.5 fL (81.0-99.0) 02/19/19 08:39 MCH 31.1 pg (27.0-31.0) H 02/19/19 08:39 MCHC 33.6 g/dL (33.0-37.0) 02/19/19 08:39 RDW 15.0 % (11.5-14.5) H 02/19/19 08:39 Plt Count 416 K/uL (130-400) H 02/19/19 08:39 MPV 6.9 fL (7.2-11.7) L 02/19/19 08:39 Neut % (Auto) 77.6 % (50.0-75.0) H 02/19/19 08:39 Lymph % (Auto) 16.7 % (20.0-40.0) L 02/19/19 08:39 Emmet % (Auto) 5.5 % (0.0-10.0) 02/19/19 08:39 Eos % (Auto) 0.0 % (0.0-4.0) 02/19/19 08:39 Baso % (Auto) 0.2 % (0.0-2.0) 02/19/19 08:39 Neut # (Auto) 9.2 K/uL (1.8-7.0) H 02/19/19 08:39 Lymph # (Auto) 2.0 K/uL (1.0-4.3) 02/19/19 08:39 Emmet # (Auto) 0.7 K/uL (0.0-0.8) 02/19/19 08:39 Eos # (Auto) 0.0 K/uL (0.0-0.7) 02/19/19 08:39 Baso # (Auto) 0.0 K/uL (0.0-0.2) 02/19/19 08:39 Sodium 137 mmol/L (132-148) 02/19/19 08:39 Potassium 4.2 mmol/L (3.6-5.2) 02/19/19 08:39 Chloride 101 mmol/L (98-107) 02/19/19 08:39 Carbon Dioxide 24 mmol/L (22-30) 02/19/19 08:39 Anion Gap 16 (10-20) 02/19/19 08:39 BUN 23 mg/dL (7-17) H 02/19/19 08:39 Creatinine 0.6 mg/dL (0.7-1.2) L 02/19/19 08:39 Est GFR ( Amer) > 60 02/19/19 08:39 Est GFR (Non-Af Amer) > 60 02/19/19 08:39 POC Glucose (mg/dL) 175 mg/dL (65-110) H 02/22/19 07:20 Random Glucose 274 mg/dL (65-105) H 02/19/19 08:39 Calcium 9.9 mg/dl (8.6-10.4) 02/19/19 08:39 Phosphorus 3.5 mg/dL (2.5-4.5) 02/18/19 07:52 Magnesium 2.1 mg/dL (1.6-2.3) 02/18/19 07:52 Total Bilirubin 0.5 mg/dL (0.2-1.3) 02/18/19 07:52 AST 31 U/L (14-36) 02/18/19 07:52 ALT 38 U/L (9-52) 02/18/19 07:52 Alkaline Phosphatase 66 U/L (38-126) 02/18/19 07:52 NT-Pro-B Natriuret Pep 48.9 pg/mL (0-900) 02/16/19 15:14 Total Protein 7.6 g/dL (6.3-8.3) 02/18/19 07:52 Albumin 4.3 g/dL (3.5-5.0) 02/18/19 07:52 Globulin 3.3 gm/dL (2.2-3.9) 02/18/19 07:52 Albumin/Globulin Ratio 1.3 (1.0-2.1) 02/18/19 07:52 Influenza Typ A,B (EIA) Negative for flu a/b (NEGATIVE) 02/16/19 15:24 Discharge Plan - Follow Up Plan Condition: FAIR Disposition: HOME/ ROUTINE
[2019-02-22 08:09] VITALS: BP 115/76; PULSE 97; TEMP 97.9
[2019-02-22] MEDS: (Novolin R) Insulin Human Regular 100 units/ml vial SC SCH (08:23)
[2019-02-22] MEDS: Acetylcysteine 20% Inhal Soln (4ml) INH SCH (08:26)
[2019-02-22] MEDS: Budesonide 0.5 mg/2 ml Inhal Susp UD INH SCH (08:27)
[2019-02-22] MEDS: cefTRIAXone IV 1 gm in Dextros 50 ML IVPB SCH (09:43)
[2019-02-22] MEDS: MethylPREDNISolone 40 mg Vial IVP SCH (09:43)
== END 2019-02-22 11:56 | disposition home or self-care (01) | DRG 190 ==
LOC: C.ER 14:43 → C.9E 15:56 → C.3T 16:33
PROVIDERS: ADMIT Internal Medicine; ATTEND Internal Medicine
DX: J44.1 Chronic obstructive pulmonary disease with (acute) exacerbation (principal); J18.9 Pneumonia, unspecified organism; F17.200 Nicotine dependence, unspecified, uncomplicated; J44.0 Chronic obstructive pulmonary disease with (acute) lower respiratory infection; I12.9 Hypertensive chronic kidney disease with stage 1 through stage 4 chronic kidney disease, or unspecified chronic kidney disease; E11.22 Type 2 diabetes mellitus with diabetic chronic kidney disease; E78.00 Pure hypercholesterolemia, unspecified; K21.9 Gastro-esophageal reflux disease without esophagitis; N18.9 Chronic kidney disease, unspecified

== ENCOUNTER 2019-02-27 08:13 | Outpatient (CLI) | payer OTHER, MEDICARE | END 2019-02-27 08:14 | disposition home or self-care (01) | LOC: C.MRIC 08:14 ==